=== PATIENT | male | born 1995 | race African-American/Black ===

== ENCOUNTER 2021-09-12 20:20 | Emergency (ER) | payer MEDICARE ==
[~2021-09-12] VITALS: Ht 182.9 cm; Wt 78.0 kg
[2021-09-12 20:26] VITALS: BP 120/78
== END 2021-09-12 22:49 | disposition left against medical advice (07) ==
LOC: ER 20:20 → EDBD 20:20 → ER 22:49
DX: Z53.21 Procedure and treatment not carried out due to patient leaving prior to being seen by health care provider (principal)